=== PATIENT | female | born 1990 | race Caucasian/White ===

== ENCOUNTER 2018-11-18 19:12 | Emergency (ER) | payer OTHER ==
[2018-11-18 19:25] VITALS: BP 117/60; PULSE 96; TEMP 99; BMI 23.7
[2018-11-18] MEDS ORDERED: ACETAMINOPHEN 325 MG TABLET (FP) PO ONE (19:27)
--- NOTE | 2018-11-18 19:27 | PDOC ---
Rapid Medical Evaluation Chief Complaint: Nausea/Vomiting Medical Evaluation: 11/18/18 19:25 I have performed a brief in-person evaluation of this patient. The patient presents with a chief complaint of:n/v - able to eat 2 hours ago. with chills and fevers / taken Aleve 4 hours ago. Pertinent physical exam findings: tearful , pale, abd soft I have ordered the following: Influenza testing / given 650mg tylenol The patient will proceed to the ED for further evaluation. 11/18/18 19:26 11/18/18 19:31 Discharge Disposition - Diagnosis Cough - Referrals - Patient Instructions - Post Discharge Activity
[2018-11-18] MEDS ORDERED: ACETAMINOPHEN 325 MG TABLET (FP) ONE (19:29)
[2018-11-18] MEDS ORDERED: ONDANSETRON *ODT* 4 MG TABLET SL ONE (19:47)
--- NOTE | 2018-11-18 19:47 | PDOC ---
History of Present Illness - General Chief Complaint: Cold Symptoms Stated Complaint: FEVER NAUSEA Time Seen by Provider: 11/18/18 19:42 History Source: Patient - History of Present Illness Initial Comments: 11/18/18 20:23 28-year-old female complaining of nausea, vomiting, generalized abdominal discomfort for the last 2 days. Patient reports that she has been exposed to the flu with the several coworkers with influenza. Patient also was taking care of a friend who had nausea and vomiting. Patient reports that today she was able to drink Gatorade and feeling hungry at this time. Past History - Past Medical History Allergies/Adverse Reactions: Allergies Allergy/AdvReac Type Severity Reaction Status Date / Time No Known Allergies Allergy Verified 11/18/18 19:27 Home Medications: Ambulatory Orders Naproxen Sodium [Aleve] 220 mg PO BID 11/18/18 Ondansetron HCl [Zofran] 4 mg PO TID PRN #10 tablet 11/18/18 - Suicide/Smoking/Psychosocial Hx Smoking History: Never smoked Hx Alcohol Use: No Drug/Substance Use Hx: No Review of Systems - Review of Systems Able to Perform ROS?: Yes Is the patient limited Syriac proficient: No Constitutional: No: Symptoms Reported, See HPI, Chills, Diaphoresis, Fever, Loss of Appetite, Malaise, Night Sweats, Weakness, Weight Stable, Unintentional Wgt. Loss, Unexplained wgt Loss, Other HEENTM: Yes: Throat Pain ABD/GI: Yes: Nausea, Vomiting, Abdominal cramping. No: Constipated, Diarrhea : No: Symptoms Reported, See HPI, Burning, Dysuria, Discharge, Frequency, Flank Pain, Hematuria, Incontinence, Pain, Urgency, Testicular Mass, Testicular Swelling, Lesions, Testicular Pain, Other Musculoskeletal: No: Symptoms Reported, See HPI, Back Pain, Gout, Joint Pain, Joint Swelling, Muscle Pain, Muscle Weakness, Neck Pain, Joint Stiffness, Other Integumentary: No: Symptoms Reported, See HPI, Bruising, Change in Color, Change in Hair/Nails, Dryness, Erythema, Flushing, Lesions, Lumps, Pallor, Pruritus, Rash, Sweating, Other *Physical Exam - Vital Signs Last Vital Signs Temp Pulse Resp BP Pulse Ox 99 F 96 H 20 117/60 97 11/18/18 19:19 11/18/18 19:19 11/18/18 19:19 11/18/18 19:19 11/18/18 19:19 - Physical Exam General Appearance: Yes: Appropriately Dressed Respiratory/Chest: positive: Lungs Clear, Normal Breath Sounds Cardiovascular: positive: Regular Rhythm, Regular Rate Gastrointestinal/Abdominal: positive: Normal Bowel Sounds, Tender (generalized ) , Soft Musculoskeletal: positive: Normal Inspection Extremity: positive: Normal Capillary Refill, Normal Inspection, Normal Range of Motion, Pelvis Stable Integumentary: positive: Normal Color, Dry, Warm Neurologic: positive: Fully Oriented, Alert, Normal Mood/Affect Moderate Sedation - Procedure Monitoring Vital Signs: Procedure Monitoring Vital Signs Temperature 99 F 11/18/18 19:19 Pulse Rate 96 H 11/18/18 19:19 Respiratory Rate 20 11/18/18 19:19 Blood Pressure 117/60 11/18/18 19:19 O2 Sat by Pulse Oximetry (%) 97 11/18/18 19:19 Medical Decision Making - Medical Decision Making 11/18/18 20:26 patient now tolerating po gatorade. reports feeling a lot better *DC/Admit/Observation/Transfer Diagnosis at time of Disposition: Viral illness - Discharge Dispostion Disposition: HOME - Prescriptions Prescriptions: Ondansetron HCl [Zofran] 4 mg PO TID PRN #10 tablet PRN Reason: Nausea - Referrals - Patient Instructions Printed Discharge Instructions: Gastroenteritis Diet Additional Instructions: drink plenty of fluids take zofran as needed for vomiting. Additional Instructions: * Please call your personal physician to report your Emergency Department visit and to report your progress, if any. * If there is no improvement in symptoms in 2 days call your physician. * Return to the Emergency Department for any worsening symptoms. - Post Discharge Activity Forms/Work/School Notes: Back to Work
[2018-11-18] MEDS ORDERED: ONDANSETRON *ODT* 4 MG TABLET ONE (20:06)
== END 2018-11-18 20:49 | disposition home or self-care (01) ==
LOC: JERFT 19:12
DX: B34.9 Viral infection, unspecified (principal)
CPT/HCPCS: 87804; 99281-25; Q0162

== ENCOUNTER 2021-03-25 09:10 | Emergency (ER) | payer OTHER ==
[2021-03-25 09:21] VITALS: BP 120/82; PULSE 87; TEMP 98.2; BMI 26.0
[2021-03-25] MEDS ORDERED: ACETAMINOPHEN 325 MG TABLET (FP) PO ONE (09:55)
[2021-03-25] MEDS ORDERED: ACETAMINOPHEN 325 MG TABLET (FP) ONE (09:56)
== END 2021-03-25 11:35 | disposition home or self-care (01) ==
LOC: JER 09:10
DX: M79.671 Pain in right foot (principal); M79.672 Pain in left foot
CPT/HCPCS: 73610-TC-LT-FY; 73610-TC-RT-FY; 73630-TC-LT; 73630-TC-RT-FY; 99284-25

== ENCOUNTER 2022-10-29 11:38 | Emergency (ER) | payer OTHER ==
[2022-10-29 12:01] VITALS: BP 106/57; PULSE 75; RESP 18; TEMP 98.6; BMI 24.1
[2022-10-29] MEDS ORDERED: LIDOCAINE 5% TOPICAL PATCH TP ONE (13:40)
[2022-10-29] MEDS ORDERED: ACETAMINOPHEN 500 MG TABLET (FP) PO ONE (13:40)
[2022-10-29] MEDS ORDERED: KETOROLAC TROMETHAMINE 30 MG/1 ML VIAL IM ONE (13:40)
[2022-10-29] MEDS ORDERED: LIDOCAINE 5% TOPICAL PATCH ONE (13:59)
[2022-10-29] MEDS ORDERED: ACETAMINOPHEN 500 MG TABLET (FP) ONE (14:08)
[2022-10-29] MEDS ORDERED: KETOROLAC TROMETHAMINE 30 MG/1 ML VIAL ONE (14:08)
[2022-10-29 14:11] LABS: BASO % 0.8 % (0-2.0); EOS % 0.5 % (0-4.5); HEMATOCRIT 39.1 % (32.4-45.2); HEMOGLOBIN 12.8 GM/dL (10.7-15.3); LYMPH % 23.5 % (8-40); MCH 28.2 pg (25.7-33.7); MCHC 32.7 g/dl (32.0-36.0); MEAN CELL VOLUME 86.1 fl (80-96); MEAN PLT VOLUME 8.5 fl (7.5-11.1); MONO % 5.8 % (3.8-10.2); NEUT % 69.4 % (42.8-82.8); PLATELET COUNT 319 10^3/uL (134-434); RBC 4.54 M/mm3 (3.60-5.2); WHITE BLOOD COUNT 7.4 K/mm3 (4.0-10.0)
[2022-10-29 14:33] LABS: CALCIUM 9.8 mg/dL (8.5-10.1)
[2022-10-29 14:34] LABS: BLOOD UREA NITROGEN 9.2 mg/dL (7-18)
[2022-10-29 14:37] LABS: CREATININE 0.7 mg/dL (0.55-1.3)
[2022-10-29] MEDS ORDERED: LIDOCAINE PATCH REMOVAL MC ONE (22:00)
== END 2022-10-29 16:14 | disposition home or self-care (01) ==
LOC: JER 11:38
PROC: 3E023GC Introduction of Other Therapeutic Substance into Muscle, Percutaneous Approach (ICD-10-PCS; principal; 2022-10-29)
DX: R07.89 Other chest pain (principal)
CPT/HCPCS: 36415; 71046-TC-FY; 80048; 84443; 84484; 85025; 93005; 93010; 99285-25

== ENCOUNTER 2023-05-24 19:44 | Emergency (ER) | payer OTHER ==
[2023-05-24 19:54] VITALS: BP 133/85; PULSE 79; RESP 19; TEMP 98.6; BMI 25.4
[2023-05-24] MEDS ORDERED: LIDOCAINE 5% TOPICAL PATCH TP ONE (20:01)
[2023-05-24] MEDS ORDERED: KETOROLAC TROMETHAMINE 30 MG/1 ML VIAL IM ONE (20:01)
[2023-05-24] MEDS ORDERED: CYCLOBENZAPRINE HCL 10 MG TABLET (FP) PO ONE (20:01)
[2023-05-24] MEDS ORDERED: CYCLOBENZAPRINE HCL 10 MG TABLET (FP) ONE (20:02)
[2023-05-24] MEDS ORDERED: KETOROLAC TROMETHAMINE 15 MG/ML VIAL ONE (20:03)
[2023-05-24] MEDS ORDERED: LIDOCAINE 5% TOPICAL PATCH ONE (20:04)
[2023-05-24] MEDS ORDERED: LIDOCAINE PATCH REMOVAL MC SCH (22:00)
== END 2023-05-24 21:09 | disposition home or self-care (01) ==
LOC: JER 19:44
PROC: 3E0233Z Introduction of Anti-inflammatory into Muscle, Percutaneous Approach (ICD-10-PCS; principal; 2023-05-24)
DX: M25.512 Pain in left shoulder (principal); M25.511 Pain in right shoulder; M54.2 Cervicalgia; X50.0XXA Overexertion from strenuous movement or load, initial encounter
CPT/HCPCS: 99284-25